=== PATIENT | female | born 1980 | race Caucasian/White ===

== ENCOUNTER → 2018-01-24 | Outpatient (CLI) | payer SELFPAY ==
[2016-07-03 19:31] VITALS: BP 137/91
--- NOTE | 2018-01-24 13:08 | US ---
History: Pain Exam: Abdominal ultrasound Comparison: None Technique: Multiple grayscale and color flow Doppler images of the abdomen were obtained. Findings: The liver is normal size and echogenicity. There is hepatopetal flow in the portal vein and visualize d hepatic veins and IVC are unremarkable. The gallbladder is normal size with no gallstones or wall t hickening. The common duct measures 3.5 mm. The pancreas is partially obscured due to overlying bowel gas. Both kidneys measure approximately 10 cm in length and normal in echogenicity with no hydroneph rosis or renal stones. The visualized aorta is unremarkable. IMPRESSION: Normal liver, gallbladder, and biliary tree. Partial obscuration of the pancreas due to overlying bowel gas otherwise, unremarkable. Reported By:
--- NOTE | 2018-01-24 15:31 | US ---
HISTORY: Left breast lump and pain Bilateral digital diagnostic mammography with CAD and left breast ultrasound. Comparison: None FINDINGS: Mammogram: Bilateral CC and MLO projections of the right and left breast were obtained. Scattered fi broglandular tissue is seen to be present without significant interval change. No suspicious archite ctural distortion, mass or clustered microcalcifications can be observed to suggest malignancy. No s kin thickening or nipple retraction is appreciated. No pathological lymphadenopathy can be identifi ed. Benign-appearing calcifications are noted within the right and left breast. Ultrasound: Multiple grayscale images of the left breast were obtained in the region of interest at 1 o'clock. There are dense fibrocystic changes. No suspicious cystic or solid nodules are identified. There are no focal fluid collections. There is no pathologic lymphadenopathy. IMPRESSION: NO RADIOGRAPHIC EVIDENCE OF MALIGNANCY. ACR CATEGORY 2 - benign findings. FOLLOW-UP EXAM 1 YEAR. Diagnostic CAD was utilized and reviewed. * 0 (ZERO) - ASSESSMENT INCOMPLETE; ADDITIONAL IMAGING IS NEEDED. * 1/ (ONE) - NEGATIVE. * 2/II (TWO) - BENIGN FINDINGS. * 3/III (THREE) - PROBABLY BENIGN FINDING; SHORT INTERVAL FOLLOW-UP SUGGESTED. * 4/IV (FOUR) - SUSPICIOUS ABNORMALITY; BIOPSY SHOULD BE CONSIDERED. * 5/V - HIGHLY SUSPICIOUS OF MALIGNANCY; BIOPSY SHOULD BE PERFORMED. A NEGATIVE X-RAY REPORT SHOULD NOT DELAY BIOPSY IF A DOMINANT OR CLINICALLY SUSPICIOUS MASS IS PRESENT; 4 TO 8 PERCENT OF CANCERS ARE NOT IDENTIFIED BY X-RAY. A NEGA TIVE REPORT MAY REINFORCE THE CLINICAL IMPRESSION. ADENOSIS AND DENSE BREASTS MAY OBSCURE AN UNDERLY ING NEOPLASM. Reported By:
== END ==
LOC: RAD 10:57
PROVIDERS: ATTEND Nurse Practitioner Family
DX: R10.32 Left lower quadrant pain (principal); N63.21 Unspecified lump in the left breast, upper outer quadrant
CPT/HCPCS: 76642; 76700; 77066